=== PATIENT | male | born 1980 | race Caucasian/White ===

== ENCOUNTER 2016-09-24 12:21 | Emergency (ER) | payer OTHER ==
[~2016-09-24] VITALS: Ht 182.9 cm; Wt 99.8 kg
[2016-09-24 12:47] VITALS: BP 130/84
[2016-09-24] MEDS ORDERED: BACL10TA PO (13:43)
[2016-09-24] MEDS ORDERED: ACET-704 PO (13:43)
--- NOTE | 2016-09-24 13:44 | PHYS DOC ---
Past Medical History Past Medical History: No Pertinent History Past Surgical History: No Surgical History Additional Information: nonsmoker Alcohol Use: None Drug Use: None Adult General Chief Complaint Chief Complaint: BACK PAIN OR INJURY [facility] HPI Patient is a 35 year old male who presents with back pain for one week. He states that the pain started after lifting weights. The pain is mostly to the left side and does not radiate. The patient saw his PCP and was prescribed naproxen and Flexeril. He states that this is not helping with his pain. Last night, the patient picked up his son and had increase in his pain. He denies any focal weakness or numbness. He has not had any incontinence or saddle anesthesia. He denies nausea, vomiting, abdominal pain, or shortness of breath. His PCP is Dr. Marquez. Review of Systems Review of Systems Constitutional: Denies fever or chills. [] Respiratory: Denies cough or shortness of breath. [] Cardiovascular: Denies chest pain, palpitations or edema. [] GI: Denies abdominal pain, nausea, vomiting. [] Musculoskeletal: Denies joint pain. Reports left-sided midback pain. Integument: Denies rash or skin lesions. [] Neurologic: Denies headache, focal weakness or sensory changes. Denies incontinence or saddle anesthesia. All systems reviewed and negative unless otherwise stated in the HPI. Allergies Allergies Allergies Coded Allergies Type Severity Reaction Last Updated Verified No Known Drug Allergies 09/24/16 No Physical Exam Physical Exam Constitutional: Well developed, well nourished, no acute distress, non-toxic appearance. [] HENT: Normocephalic, atraumatic, oropharynx moist. [] Eyes: PERRLA, EOMI, conjunctiva normal, no discharge. [] Neck: Normal range of motion, no tenderness, supple, no stridor. [] Cardiovascular: Heart rate regular rhythm, no murmur. [] Lungs & Thorax: Bilateral breath sounds clear to auscultation without wheezes, rales, or rhonchi. [] Abdomen: Bowel sounds normal, soft, no tenderness, no masses, no pulsatile masses. [] Skin: Warm, dry, no erythema, no rash. [] Back: No midline tenderness, no CVA tenderness. There is left paraspinal muscle tenderness and spasm as well as in the left rhomboids. Extremities: No tenderness, ROM intact, no edema. Distal pulses equal bilaterally. Less than 2 second capillary the fingers. Light touch sensation intact distally. Neurologic: Alert and oriented X 3, normal motor function, normal sensory function, no focal deficits noted. [] Psychologic: Affect normal, judgement normal, mood normal. [] Current Patient Data Vital Signs Vital Signs Date Time Temp Pulse Resp B/P Pulse Ox O2 Delivery O2 Flow Rate FiO2 09/24/16 12:47 98.4 77 19 99 Room Air 98.4 EKG EKG [] Radiology/Procedures Radiology/Procedures [] Course & Med Decision Making Course & Med Decision Making Pertinent Labs and Imaging studies reviewed. (See chart for details) [] Dragon Disclaimer Dragon Disclaimer This electronic medical record was generated, in whole or in part, using a voice recognition dictation system. Departure Departure Impression: Primary Impression: Strain of thoracic region Disposition: HOME, SELF-CARE Condition: STABLE Referrals: NO PCP (PCP) Patient Instructions: Thoracic Strain, [id number] Additional Instructions: Please take the prescribed medications as directed. Do not drive or operate heavy machinery while taking these medications. To help with your back pain, apply heat, practice gentle stretching and light massage, and avoid bending or lifting activities that will further strain your back. Please follow-up with your primary care doctor if your pain continues. Return to the emergency department if you have any new or concerning symptoms. Scripts Baclofen 10 Mg [id number] Mg PO TID MUSCLE RELAXER #30 TAB Ref 0 Prov:COMFORT GALICIA 09/24/16 Acetaminophen With Codeine (Tylenol With Codeine #3 Tablet)1 Each Tablet1 Tab PO PRN Q6HRS PRN PAIN #20 TAB Prov:COMFORT GALICIA 09/24/16 Problem Qualifiers Primary Impression: Strain of thoracic region Encounter type: initial encounter Qualified Code: S29.019A - Strain of muscle and tendon of unspecified wall of thorax, initial encounter COMFORT GALICIA Sep 24, 2016 13:44
== END 2016-09-24 13:58 | disposition home or self-care (01) ==
LOC: ER 12:21
DX: S29.012A Strain of muscle and tendon of back wall of thorax, initial encounter (principal); X50.0XXA Overexertion from strenuous movement or load, initial encounter; Y93.89 Activity, other specified; Y99.8 Other external cause status; Y92.89 Other specified places as the place of occurrence of the external cause
CPT/HCPCS: 99283